=== PATIENT | female | born 1935 | race Caucasian/White ===

== ENCOUNTER 2017-10-29 14:41 | Emergency (ER) | payer OTHER ==
[~2017-10-29] VITALS: Ht 165.1 cm; Wt 75.3 kg
[~2017-10-29 14:41] MED LIST: AUGMENTIN875 MG PO; DIOVAN160 MG PO; Ecotrin PO; FLAGYL500 MG PO; Flovent 110 mcg IH; PRILOSEC20 MG PO; PROAIR HFA8.5 GM IH; PriLOSEC PO; SINGULAIR10 MG PO; Singulair PO; Tylenol Regular Stre PO
[2017-10-29 15:09] LABS: HEMATOCRIT 37.8 % (36.0-46.0); HEMOGLOBIN 12.8 G/DL (11.9-15.5); MCH 31.5 PG (29.0-34.0); MCHC 33.9 G/DL (30.0-36.0); MCV 93.1 FL (83-99); PLATELET COUNT 255 K/uL (156-360); RBC DIS.WIDTH-SD 44.7 % (39-53); RED BLOOD COUNT 4.06 M/uL (3.80-5.20); WHITE BLOOD COUNT 11.4 K/uL (4.1-10.2)
[2017-10-29 15:19] LABS: ALBUMIN 4.2 g/dL (3.2-4.8)
[2017-10-29 15:20] LABS: CHLORIDE 107 mEq/L (99-109); POTASSIUM 3.8 mEq/L (3.7-5.4); SODIUM 144 mEq/L (136-147)
[2017-10-29 15:22] LABS: GLUCOSE 113 mg/dL (70-99); TOTAL PROTEIN 7.2 g/dL (6.4-8.3)
[2017-10-29 15:24] LABS: TOTAL BILIRUBIN 0.3 mg/dL (0.0-1.0)
[2017-10-29 15:25] LABS: ALKALINE PHOSPHATASE 123 IU/L (3-129)
[2017-10-29 15:26] LABS: GFR ESTIMATE (CALCULATED) 56 mL/min/
[2017-10-29 15:27] LABS: AST (GOT) 18 IU/L (2-34); UREA NITROGEN (BUN) 13 mg/dL (9-23)
[2017-10-29 15:28] LABS: ALT (GPT) 22 IU/L (3-49)
[2017-10-29 15:29] LABS: LIPASE 42 U/L (1.0-51.0)
[2017-10-29 15:34] LABS: TROP-I INTERPRETATION NEGATIVE; TROPONIN-I < 0.01 ng/mL (0.0-0.30)
[2017-10-29 17:37] VITALS: BP 126/63
== END 2017-10-29 17:47 | disposition home or self-care (01) ==
LOC: EME 14:41
PROVIDERS: Emergency Medicine Emergency Medical Services
DX: R07.9 Chest pain, unspecified (principal); R06.02 Shortness of breath; J45.909 Unspecified asthma, uncomplicated; K21.9 Gastro-esophageal reflux disease without esophagitis; E78.5 Hyperlipidemia, unspecified; I10 Essential (primary) hypertension
CPT/HCPCS: 71045; 80053; 83690; 84484; 85027; 93005; 99281; 99285

== ENCOUNTER 2017-12-04 09:42 | Observation (INO) | payer OTHER ==
[~2017-12-04] VITALS: Ht 165.1 cm; Wt 73.0 kg
[~2017-12-04 09:42] MED LIST changes: +ASPIRIN81 M2 PO; +ATORVASTATIN CA20 MG PO; +BREO ELLIPTA 21 EACH IH; +CARAFATE100 MG/ML PO; +DONEPEZIL HCL5 MG PO; +ISOSORBIDE MONO30 MG PO; +METOPROLOL SUC100 MG PO; +NITROSTAT0.4 MG SL
== END 2017-12-04 18:18 | disposition short-term general hospital (02) ==
LOC: CATH 09:42 → 4EAST 12:32 → 2SOUTH 12:32 → ENRESERV 13:39 → 4EAST 14:59 → ENPENDDIS 17:00 → 4EAST 18:18
DX: I25.10 Atherosclerotic heart disease of native coronary artery without angina pectoris (principal); I25.84 Coronary atherosclerosis due to calcified coronary lesion; I10 Essential (primary) hypertension; M19.90 Unspecified osteoarthritis, unspecified site; J45.909 Unspecified asthma, uncomplicated; K21.9 Gastro-esophageal reflux disease without esophagitis; K22.70 Barrett's esophagus without dysplasia; E78.2 Mixed hyperlipidemia; I51.7 Cardiomegaly; Z82.49 Family history of ischemic heart disease and other diseases of the circulatory system; Z90.710 Acquired absence of both cervix and uterus; Z88.8 Allergy status to other drugs, medicaments and biological substances
CPT/HCPCS: 94799; C1769; C1887; G0378; J1644; J2250; J3010